=== PATIENT | male | born 1995 | race Caucasian/White ===

== ENCOUNTER → 2020-11-25 | Outpatient (CLI) | payer OTHER ==
[~2020-11-25] MED LIST: IBUPROFEN600 MG PO
[2020-11-25 13:08] LABS: HEMOGLOBIN 17.3 gm/dl (14.0-17.5); RED BLOOD COUNT 5.62 M/UL (4.20-5.50); WHITE BLOOD COUNT 8.5 K/UL (4.5-11.0)
[2020-11-25 13:25] LABS: BUN/CREATININE RATIO 13 (0-10)
== END ==
LOC: LAB 12:45
PROVIDERS: Family Medicine
DX: Z00.00 Encounter for general adult medical examination without abnormal findings (principal); R00.2 Palpitations; E53.8 Deficiency of other specified B group vitamins; R26.1 Paralytic gait
CPT/HCPCS: 80048; 80061; 80076; 82607; 82652; 84443; 85025

== ENCOUNTER 2021-03-10 20:30 | Emergency (ER) | payer OTHER ==
[2021-03-10 21:31] LABS: HEMOGLOBIN 16.1 gm/dl (14.0-17.5); RED BLOOD COUNT 5.54 M/UL (4.20-5.50); WHITE BLOOD COUNT 10.6 K/UL (4.5-11.0)
[2021-03-10 21:49] LABS: BUN/CREATININE RATIO 15 (0-10)
[2021-03-13 06:10] LABS: CHLAMYDIA TRACHOMATIS, NAA Negative (Negative); NEISSERIA GONORRHOEAE, NAA Negative (Negative)
== END 2021-03-10 23:23 | disposition home or self-care (01) ==
LOC: ER1 20:30
PROVIDERS: Physician Assistant Medical
DX: N50.812 Left testicular pain (principal); R33.9 Retention of urine, unspecified; F17.210 Nicotine dependence, cigarettes, uncomplicated
CPT/HCPCS: 76870; 80053; 81001; 85025; 99284